=== PATIENT | female | born 1990 | race Caucasian/White ===

== ENCOUNTER 2017-02-07 20:17 | Emergency (ER) | payer OTHER ==
[2017-02-07] MEDS ORDERED: ORPHENADRINE CITRATE 60 MG/2ML ONE (20:31)
--- NOTE | 2017-02-07 20:33 | ED Physician Documentation ---
General Adult - HISTORIAN Historian: patient - HPI Chief Complaint: General Adult Onset: minutes Further Comments: yes (26 year old female patient presents with neck and back discomfort after picking up a client off the floor at work. 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 C/O severe neck and low back pain after lifting the client.) - ROS CONST: no problems EYES/ENT: none CVS/RESP: none GI/: none MS/SKIN/LYMPH: none NEURO/PSYCH: denies: headache, fainting, dizziness, tingling, numbness, difficulty walking, difficulty with speech, anxiety, depression, other - PAST HX Past History: none Other History: none Surgeries/Procedures: BTL, cholecystectomy Allergies/Adverse Reactions: Allergies Allergy/AdvReac Type Severity Reaction Status Date / Time sulfacetamide sodium Allergy Verified 02/07/17 20:26 [From Sulfacet-R] sulfur [From Sulfacet-R] Allergy Verified 02/07/17 20:26 Penicillins AdvReac Severe Throat Verified 02/07/17 20:26 Swelling Home Medications: Ambulatory Orders Medication Instructions Recorded NK [NK] 01/20/16 - SOCIAL HX Smoking History: cigarettes - FAMILY HX Family History: No - VITAL SIGNS Vital Signs: Vital Signs Temp Pulse Resp BP Pulse Ox 119/78 01/20/16 17:37 - REVIEWED ASSESSMENTS Nursing Assessment Reviewed: Yes Vitals Reviewed: Yes Progress - Progress Progress: Medicated in ER with toradol and norflex IM ED Results Lab/Radiology - Orders Orders: ED Orders Category Date Time Status Ketorolac Tromethamine [Toradol] Med 02/07/17 20:31 Once 60 mg IM NOW ONE General Adult Physical Exam - PHYSICAL EXAM GENERAL APPEARANCE: [id number] N NECK: normal inspection, thyroid normal, other (left lateral neck pain with palpation, ROM intact, no c-spine tenderness) RESPIRATORY: no resp distress, chest non-tender, breath sounds normal CVS: reg rate & rhythm, heart sounds normal, equal pulses, no murmur, no gallop , PMI nml, no JVD, no friction rub, 24 BACK: normal inspection, no CVA tenderness, other (left paraspinous muscle tenderness in lumbar area with palpation) SKIN: warm/dry, normal color EXTREMITIES: non-tender, normal range of motion, no evidence of injury, no edema , J, [employer] NEURO: oriented X3, CN's nml as tested, motor nml, sensation nml, mood/affect nml Discharge Clincal Impression: Acute low back pain Qualifiers: Back pain laterality: left Sciatica presence: without sciatica Qualified Code(s ): M54.5 - Low back pain Cervical strain, acute Qualifiers: Encounter type: initial encounter Qualified Code(s): S16.1XXA - Strain of muscle, fascia and tendon at neck level, initial encounter Home Medications: Ambulatory Orders NK [NK] 01/20/16 Condition: Stable Disposition: 01 HOME, SELF-CARE Decision to Admit: NO Decision Time: 20:39
[2017-02-07] MEDS: ORPHENADRINE CITRATE 60 MG/2ML IM ONE (20:39)
[2017-02-07] MEDS: KETOROLAC TROMETHAMINE 60 MG/2 ML VIAL IM ONE (20:40)
[2017-02-07 21:09] VITALS: BP 136/86
== END 2017-02-07 21:00 | disposition home or self-care (01) ==
LOC: ED 20:17
DX: M54.5 Low back pain (principal); S16.1XXA Strain of muscle, fascia and tendon at neck level, initial encounter; X58.XXXA Exposure to other specified factors, initial encounter; Y93.9 Activity, unspecified; Y99.9 Unspecified external cause status
CPT/HCPCS: 96372; 99283; J1885; J2360

== ENCOUNTER 2017-04-27 12:58 | Emergency (ER) | payer OTHER ==
[2017-04-27] MEDS ORDERED: MAG HYDROX/AL HYDROX/SIMETH 30 ML, Lidocaine 2%Visc 15ml 20 MG, PHENobarb/HYOSCY/ATROPI... PO ONE ×6 (14:23→14:25)
[2017-04-27] MEDS ORDERED: MAG HYDROX/AL HYDROX/SIMETH 30 ML UDC PO ONE (14:24)
[2017-04-27] MEDS ORDERED: Lidocaine 2%Visc 15ml 20 MG/ML UDC ONE (14:24)
--- NOTE | 2017-04-27 15:37 | Diagnostic Imaging Report ---
CAMILO MAJOR [facility] [id number] [address] [facility] [address] [place], [place]. [address] Report Submission Date: Apr 27, 2017 3:30:25 PM CDT Patient Study Name: HOLGER SANTOS Date: Apr 27, 2017 3:00:27 PM CDT Modality Type: CR Gender: F Description: CHEST : 89 Institution: [facility] Physician: CAMILO MAJOR Examination: PA and lateral chest. History: Chest discomfort Findings: PA lateral chest demonstrate a normal cardiac and mediastinal silhouette. No focal infiltrate. No effusion. No blunting of the costophrenic margins. Osseous structures are appropriate for age. Impression: No acute process. Electronically signed on Apr 27, 2017 3:30:25 PM CDT by: Dylan MARSH
[2017-04-27 16:18] VITALS: BP 118/68
--- NOTE | 2017-04-27 16:19 | ED Physician Documentation ---
Chest Pain - HISTORIAN Historian: patient, parent - HPI Stated Complaint: "Arthritic Chest Pain" Chief Complaint: Chest Pain Additional Information: urq ch parasternal onset for 6 months tx as arthritic helps but returns-no fam hx of mi or pe. assoc back pain same dermatome. worse w/ any food or coffee or lifting. no diaphoresis no prev known trauma Timing: gradual onset, still present (no real complete relief) Duration: constant, waxing, waning Last known Well Date: 10/29/16 Last Known Well Time: 09:30 Last known Well Code/Unknown Code: Unknown (onset 6 mo ago) Severity: moderate Quality: aching, sharp, stabbing Chest Pain Signs/Symptoms: denies: nausea, vomiting, diaphoresis - ROS CONST: no problems. denies: recent illness, fever, recent injury MS/LYMPH: none EYES/ENT: none SKIN/ENDO: none (pt is quite obese) NEURO/PSYCH: depression (in appearance) - PAST HX ME risk factors: no pertinent history (smokes) DVT/PE Risk Factors: none TAD/AAA risk factors: none Neuro deficit: none GI disease: GERD Allergies/Adverse Reactions: Allergies Allergy/AdvReac Type Severity Reaction Status Date / Time sulfacetamide sodium Allergy Verified 04/27/17 13:22 [From Sulfacet-R] sulfur [From Sulfacet-R] Allergy Verified 04/27/17 13:22 Penicillins AdvReac Severe Throat Verified 04/27/17 13:22 Swelling Home Medications: Ambulatory Orders Medication Instructions Recorded NK [NK] 04/27/17 - SOCIAL HX Smoking History: non-smoker Alcohol Use: none Drug Use: none - FAMILY HX Family HX: denies: CAD under 55 - VITAL SIGNS Vital Signs: Vital Signs Temp Pulse Resp BP Pulse Ox 98.2 F 90 18 127/78 98 04/27/17 12:58 04/27/17 12:58 04/27/17 12:58 04/27/17 12:58 04/27/17 12:58 - REVIEWED ASSESSMENTS Nursing Assessment Reviewed: Yes Vitals Reviewed: Yes ED Results Lab/Radiology - Radiology Radiology Impressions: cxr=wnl - Orders Orders: ED Orders Category Date Time Status Gi Cocktail Med 04/27/17 14:25 Ordered Mag Hydrox/Al Hydrox/Simeth [Mylanta] 30 ml Lidocaine 2%Visc 15ml [Xylocaine] 20 mg PHENobarb/HYOSCY/ATROPINE/SCOP [] 10 ml PO NOW Lidocaine 2%Visc 15ml [Xylocaine] Med 04/27/17 14:24 Once 300 mg .ROUTE .STK-MED ONE Mag Hydrox/Al Hydrox/Simeth [Mylanta] Med 04/27/17 14:24 Discontinued 30 ml PO .STK-MED ONE Mag Hydrox/Al Hydrox/Simeth [Mylanta] 30 ml Med 04/27/17 14:23 Discontinued Lidocaine 2%Visc 15ml [Xylocaine] 20 mg PHENobarb/HYOSCY/ATROPINE/SCOP [] 10 ml PO NOW EKG WITH COMPARISON Stat Ther 04/27/17 Ordered Chest Pain Physical Exam - EXAM General Appearance: mild distress EENT: eye inspection normal Neck: nml inspection Respiratory: no resp. distress, nml breath sounds. No: chest non-tender, resp.distress, decreased air movement CVS: reg. rate & rhythm, pulses equal Abdomen: soft, non-tender Skin: warm/dry, normal color. No: cyanosis, diaphoresis, jaundice Extremities: non-tender, normal range of motion, no evidence of injury, no edema Neuro: oriented X3, mood/affect nml Discharge Clincal Impression: atypical chest pain Referrals: Javier Espinoza [Primary Care Provider] - 2 Days Home Medications: Ambulatory Orders NK [NK] 04/27/17 Comments: we discussed referral and ct chest/pt mom elect no for now but will see DR POSADA very soon Condition: Good Disposition: 01 HOME, SELF-CARE Decision to Admit: NO Decision Time: 16:14
== END 2017-04-27 16:15 | disposition home or self-care (01) ==
LOC: ED 12:58
DX: R07.89 Other chest pain (principal)
CPT/HCPCS: 71020; A9270; 99283